=== PATIENT | female | born 1985 | race Hispanic/Latino ===

== ENCOUNTER 2016-11-17 22:26 | Emergency (ER) | payer OTHER ==
[~2016-11-17] VITALS: Ht 162.6 cm; Wt 106.6 kg
--- NOTE | 2016-11-17 22:30 | ED Cardiac General ---
History of Present Illness General Chief Complaint: Chest Pain Stated Complaint: CP,SYNCOPE Source: patient Exam Limitations: no limitations (NEAL NOONAN APRN) History of Present Illness Time seen by provider: 22:28 Initial Comments To ER with reports of chest pain and syncope per EMS. She arrives from home. Patient was reportedly in an argument with her 11-year-old daughter when she had a syncopal event. She then "came to" and felt normal. She was going to refuse EMS transport but she grabbed her chest and developed a brief episode of squeezing chest pain. At this point she is alert, oriented, smiling and very pleasant. She denies any symptoms whatsoever at this time states that she feels completely normal. She does not currently nor did she ever have dyspnea. No history of DVT. No unilateral leg swelling. Timing/Duration: changing over time, intermittent Severity: moderate Location: central Activities at Onset: emotional stress NTG SL SECONDS GRADER: No ASA po SECONDS GRADER: No (NEAL NOONAN APRN) Allergies and Home Medications Allergies Coded Allergies: No Known Drug Allergies (Unverified , 11/17/16) Review of Systems Constitutional: see HPI EENTM: No Symptoms Reported Respiratory: No Symptoms ReportedDenies Cough, Denies Orthopnea, Denies Shortness of Air, Denies SOA With Exertion, Denies SOA at Rest Cardiovascular: See HPI Chest PainDenies Edema, Denies Irregular Heart Rate, Denies Lightheadedness, Denies Palpitations, Syncope Gastrointestinal: No Symptoms Reported Genitourinary: No Symptoms Reported Musculoskeletal: no symptoms reported Skin: no symptoms reported Psychiatric/Neurological: No Symptoms Reported Hematologic/Lymphatic: No Symptoms Reported (NEAL NOONAN APRN) Physical Exam Vital Signs Vital Sign - Last 12Hours 11/17/16 22:27 Temp 97.9 Pulse 87 Resp 20 Pulse Ox 98 O2 Delivery Room Air (SHAMAR CHAPMAN MD) Vital Signs Capillary Refill : (NEAL NOONAN APRN) General Appearance: No Apparent Distress WD/WN HEENT: PERRL/EOMI TMs Normal Neck: Full Range of Motion Normal Inspection Respiratory: Normal Breath Sounds No Accessory Muscle Use No Respiratory Distress Cardiovascular: Regular Rate, Rhythm Normal Peripheral Pulses Gastrointestinal: Non Tender Soft Extremity: Normal Capillary Refill No Calf Tenderness Neurologic/Psychiatric: Alert Oriented x3 No Motor/Sensory Deficits Normal Mood/Affect Skin: Normal Color Warm/Dry (NEAL NOONAN APRN) Focused Exam Lactic Acid Level Laboratory Tests Test 11/17/16 22:25 Alanine Aminotransferase (ALT/SGPT) 32U/L (0-55) Albumin 3.9G/DL (3.2-4.5) Alkaline Phosphatase 83U/L (40-136) Anion Gap 9MMOL/L (5-14) Aspartate Amino Transf (AST/SGOT) 22U/L (5-34) BUN/Creatinine Ratio 9 Blood Urea Nitrogen 7MG/DL (7-18) Calcium Level 9.3MG/DL (8.5-10.1) Carbon Dioxide Level 25MMOL/L (21-32) Chloride Level 102MMOL/L (98-107) Creatinine 0.74MG/DL (0.60-1.30) Estimat Glomerular Filtration Rate > 60 Glucose Level 181MG/DL (70-105) H Potassium Level 3.9MMOL/L (3.6-5.0) Sodium Level 136MMOL/L (135-145) Total Bilirubin 0.2MG/DL (0.1-1.0) Total Protein 7.7G/DL (6.4-8.2) Troponin I < 0.30NG/ML (<0.30) (SHAMAR CHAPMAN MD) Progress/Results/Core Measures Results/Orders Lab Results Laboratory Tests Test 11/17/16 22:25 Range/Units Alanine Aminotransferase (ALT/SGPT) 32 0-55 U/L Albumin 3.9 3.2-4.5 G/DL Alkaline Phosphatase 83 40-136 U/L Anion Gap 9 5-14 MMOL/L Aspartate Amino Transf (AST/SGOT) 22 5-34 U/L BUN/Creatinine Ratio 9 Band Neutrophils 0 % Basophils # (Auto) 0.0 0.0-0.1 10^3/uL Basophils % (Manual) 1 % Basophils (%) (Auto) 0 0-10 % Blood Urea Nitrogen 7 7-18 MG/DL Calcium Level 9.3 8.5-10.1 MG/DL Carbon Dioxide Level 25 21-32 MMOL/L Chloride Level 102 98-107 MMOL/L Creatinine 0.74 0.60-1.30 MG/DL D-Dimer 0.31 0.00-0.49 UG/ML Elliptocytes SLIGHT Eosinophils # (Auto) 0.3 0.0-0.3 10^3/uL Eosinophils % (Manual) 2 % Eosinophils (%) (Auto) 2 0-10 % Estimat Glomerular Filtration Rate > 60 Glucose Level 181 H 70-105 MG/DL Hematocrit 29 L 35-52 % Hemoglobin 9.0 L 11.5-16.0 G/DL Hypochromasia MODERATE Lymphocytes # (Auto) 3.8 1.0-4.0 X 10^3 Lymphocytes % (Manual) 23 % Lymphocytes (%) (Auto) 27 12-44 % Mean Corpuscular Hemoglobin 21 L 25-34 PG Mean Corpuscular Hemoglobin Concent 31 L 32-36 G/DL Mean Corpuscular Volume 69 L 80-99 FL Mean Platelet Volume 10.6 H 7.4-10.4 FL Microcytosis MODERATE Monocytes # (Auto) 0.8 0.0-1.0 X 10^3 Monocytes % (Manual) 4 % Monocytes (%) (Auto) 5 0-12 % Neutrophils # (Auto) 9.1 H 1.8-7.8 X 10^3 Neutrophils % (Manual) 70 % Neutrophils (%) (Auto) 65 42-75 % Platelet Count 391 130-400 10^3/uL Potassium Level 3.9 3.6-5.0 MMOL/L Red Blood Count 4.28 L 4.35-5.85 10^6/uL Red Cell Distribution Width 16.0 H 10.0-14.5 % Sodium Level 136 135-145 MMOL/L Spherocytes SLIGHT Total Bilirubin 0.2 0.1-1.0 MG/DL Total Protein 7.7 6.4-8.2 G/DL Troponin I < 0.30 <0.30 NG/ML White Blood Count 14.0 H 4.3-11.0 10^3/uL (SHAMAR CHAPMAN MD) My Orders Orders-SHAMAR CHAPMAN MD Fibrin Degradation Products (11/17/16 23:04) (SHAMAR CHAPMAN MD) Vital Signs/I&O Vital Sign - Last 12Hours 11/17/16 11/17/16 22:27 22:47 Temp 97.9 Pulse 87 Resp 20 B/P Pulse Ox 98 O2 Delivery Room Air Room Air (SHAMAR CHAPMAN MD) Progress Note : Progress Note 2300: I did assume care of the patient from Neal Noonan APRN pending labs. I have reviewed the case with him. 2345: Patient is without symptoms and feels much better. She has had previous episode of similar during stressful event. No significant findings on labs other than anemia. She has known diabetes and hypertension and I did discuss this with her. She will follow-up with her doctor related all of findings. Discharged home with return precautions. Patient verbalize understanding of instructions and agreement with plan. She will follow up regarding anemia, hypertension and her blood sugar. (SHAMAR CHAPMAN MD) ECG Initial ECG Impression Date: Nov 17, 2016 Initial ECG Impression Time: 21:29 Initial ECG Rate: 85 Initial ECG Rhythm: Normal Sinus Comment Sinus rhythm with normal axis. No evidence of elevation [place]. Left ventricular hypertrophy. No previous available for comparison. Interpreted by me. (SHAMAR CHAPMAN MD) Diagnostic Imaging Diagonstic Imaging: Xray Plain Films/CT/US/NM/MRI: chest Comments No acute findings (SHAMAR CHAPMAN MD) Departure Impression Impression: Primary Impression: Syncope Qualified Code: R55 - Syncope and collapse Additional Impression: Anemia Qualified Code: D64.9 - Anemia, unspecified Disposition: 01 HOME, SELF-CARE Condition: Improved Departure-Patient Inst. Decision time for Depature: 23:49 (SHAMAR CHAPMAN MD) Referrals: UNKNOWN (PCP/Family) Primary Care Physician Patient Instructions: Anemia Caused by Low Iron, Adult (DC), Syncope (Fainting ) (DC) Copy Copies To 1: WANDA SPENCE PETER J APRN Nov 17, 2016 22:30 SHAMAR CHAPMAN MD Nov 17, 2016 23:51
[2016-11-17 22:34] LABS: BASOPHILS % (AUTO) 0 % (0-10); EOSINOPHILS # (AUTO) 0.3 10^3/uL (0.0-0.3); EOSINOPHILS % (AUTO) 2 % (0-10); LYMPHOCYTES # (AUTO) 3.8 X 10^3 (1.0-4.0); LYMPHOCYTES % (AUTO) 27 % (12-44); MEAN CORPUSCULAR HEMOGLOBIN 21 PG (25-34); MEAN CORPUSCULAR HGB CONC 31 G/DL (32-36); MEAN CORPUSCULAR VOLUME 69 FL (80-99); MEAN PLATELET VOLUME 10.6 FL (7.4-10.4); MONOCYTES # (AUTO) 0.8 X 10^3 (0.0-1.0); MONOCYTES % (AUTO) 5 % (0-12); NEUTROPHILS # (AUTO) 9.1 X 10^3 (1.8-7.8); NEUTROPHILS % (AUTO) 65 % (42-75); PLATELET COUNT 391 10^3/uL (130-400); RED BLOOD COUNT 4.28 10^6/uL (4.35-5.85)
[2016-11-17 22:46] LABS: BAND NEUTROPHILS 0 %; BASOPHILS % (MANUAL) 1 %; EOSINOPHILS % (MANUAL) 2 %; HYPOCHROMASIA MODERATE; LYMPHOCYTES % (MANUAL) 23 %; NEUTROPHILS % (MANUAL) 70 %
[2016-11-17 22:48] LABS: MICROCYTOSIS MODERATE
[2016-11-17 22:49] LABS: SPHEROCYTES SLIGHT
[2016-11-17 23:01] LABS: ALANINE AMINOTRANSFERASE 32 U/L (0-55); ALBUMIN 3.9 G/DL (3.2-4.5); ANION GAP 9 MMOL/L (5-14); ASPARTATE AMINO TRANSFERASE 22 U/L (5-34); BILIRUBIN,TOTAL 0.2 MG/DL (0.1-1.0); BLOOD UREA NITROGEN 7 MG/DL (7-18); BUN/CREATININE RATIO 9; CALCIUM 9.3 MG/DL (8.5-10.1); CARBON DIOXIDE 25 MMOL/L (21-32); CHLORIDE 102 MMOL/L (98-107); CREATININE SERUM 0.74 MG/DL (0.60-1.30); GFR ESTIMATED > 60; GLUCOSE 181 MG/DL (70-105); POTASSIUM 3.9 MMOL/L (3.6-5.0); SODIUM 136 MMOL/L (135-145); TOTAL PROTEIN 7.7 G/DL (6.4-8.2)
[2016-11-17 23:07] LABS: TROPONIN I < 0.30 NG/ML (<0.30)
[2016-11-18] VITALS: BP 123/85
--- NOTE | 2016-11-18 07:57 | Diagnostic Imaging Report ---
INDICATION: Chest pain and tightness PA and lateral chest obtained at 1103 hrs. p.m. Heart and mediastinal silhouette are normal in appearance. The lungs are clear. There is no pneumothorax or pleural fluid. IMPRESSION: Negative chest. Dictated by: Dictated on workstation # [id number]
== END 2016-11-18 | disposition home or self-care (01) ==
LOC: ER 22:27
DX: R55 Syncope and collapse (principal); D64.9 Anemia, unspecified
CPT/HCPCS: 36415; 71020; 80053; 84484; 84703; 85007; 85027; 85379; 93005

== ENCOUNTER 2016-12-03 16:38 | Emergency (ER) | payer OTHER ==
[~2016-12-03] VITALS: Ht 162.6 cm; Wt 106.6 kg
[2016-12-03] MEDS ORDERED: ACETAMINOPHEN 500 MG TAB (TYLENOL) ONE (17:00)
[2016-12-03] MEDS ORDERED: IBUPROFEN 800 MG (MOTRIN) TAB PO ONE (17:00)
[2016-12-03] MEDS ORDERED: NS IV 1000 ML 1,000 ML ONE (17:00)
[2016-12-03] MEDS ORDERED: NS IV 1000 ML 1,000 ML IV ONE (17:03)
[2016-12-03 17:17] LABS: BASOPHILS % (AUTO) 0 % (0-10); EOSINOPHILS # (AUTO) 0.1 10^3/uL (0.0-0.3); EOSINOPHILS % (AUTO) 2 % (0-10); LYMPHOCYTES # (AUTO) 0.8 X 10^3 (1.0-4.0); LYMPHOCYTES % (AUTO) 14 % (12-44); MEAN CORPUSCULAR HEMOGLOBIN 21 PG (25-34); MEAN CORPUSCULAR HGB CONC 31 G/DL (32-36); MEAN CORPUSCULAR VOLUME 69 FL (80-99); MEAN PLATELET VOLUME 10.7 FL (7.4-10.4); MONOCYTES # (AUTO) 0.6 X 10^3 (0.0-1.0); MONOCYTES % (AUTO) 11 % (0-12); NEUTROPHILS % (AUTO) 72 % (42-75); PLATELET COUNT 282 10^3/uL (130-400); RED BLOOD COUNT 4.45 10^6/uL (4.35-5.85); RED CELL DISTRIBUTION WIDTH 17.1 % (10.0-14.5); WHITE BLOOD COUNT 5.5 10^3/uL (4.3-11.0)
[2016-12-03] MEDS ORDERED: METF500T8 (17:28)
[2016-12-03] MEDS ORDERED: LISI10TA2 (17:28)
[2016-12-03 17:48] LABS: ALANINE AMINOTRANSFERASE 50 U/L (0-55); ALBUMIN 3.8 G/DL (3.2-4.5); ANION GAP 7 MMOL/L (5-14); ASPARTATE AMINO TRANSFERASE 37 U/L (5-34); BILIRUBIN,TOTAL 0.2 MG/DL (0.1-1.0); BLOOD UREA NITROGEN 5 MG/DL (7-18); BUN/CREATININE RATIO 6; CALCIUM 8.9 MG/DL (8.5-10.1); CARBON DIOXIDE 26 MMOL/L (21-32); CHLORIDE 103 MMOL/L (98-107); CREATININE SERUM 0.78 MG/DL (0.60-1.30); GFR ESTIMATED > 60; GLUCOSE 182 MG/DL (70-105); POTASSIUM 3.9 MMOL/L (3.6-5.0); SODIUM 136 MMOL/L (135-145); TOTAL PROTEIN 7.8 G/DL (6.4-8.2)
[2016-12-03 17:56] LABS: BILIRUBIN,URINE NEGATIVE (NEGATIVE); KETONES,URINE NEGATIVE (NEGATIVE); LEUKOCYTE ESTERASE ,URINE 1+ (NEGATIVE); NITRITE,URINE NEGATIVE (NEGATIVE); PH,URINE 8 (5-9); PROTEIN,URINE 2+ (NEGATIVE); UROBILINOGEN,URINE NORMAL (NORMAL)
--- NOTE | 2016-12-03 17:56 | ED Cough/URI ---
General Chief Complaint: Fever-Adult/Adol Stated Complaint: FEVER, SORE THROAT Nursing Triage Note: PT STATES HAS HAD FEVER FOR APPROX 3 DAYS, TODAY EARLIER UP TO 104. PT ALSO HAS SORETHROAT. WENT TO AND WAS GIVEN [facility]. History of Present Illness Time seen by provider: 17:35 Initial Comments Evaluation for fever, sore throat, and sinus congestion. Timing/Duration: yesterday Severity/Quality: mild, dry cough Prior Episodes/Possible Cause: no prior episodes Modifying Factors: Improves With Rest Associated Symptoms: cough, fever/chills, headache, nasal congestion Allergies and Home Medications Allergies Coded Allergies: No Known Drug Allergies (Unverified , 11/17/16) Home Medications Lisinopril 10 Mg Tablet, #30 (Reported) Metformin HCl 500 Mg Tab.er.24h, #90 (Reported) Constitutional: no symptoms reported, see HPI EENTM: nose congestion, see HPI, throat pain Respiratory: no symptoms reported, see HPI Cardiovascular: no symptoms reported, see HPI Gastrointestinal: no symptoms reported, see HPI Genitourinary: no symptoms reported, see HPI : No LMP: Dec 02, 2016 Musculoskeletal: no symptoms reported, see HPI Skin: no symptoms reported, see HPI Psychiatric/Neurological: No Symptoms Reported, See HPI Hematologic/Lymphatic: No Symptoms Reported, See HPI Immunological/Allergic: no symptoms reported, see HPI All Other Systems Reviewed Negative Unless Noted: Yes Past Xzzzlhd-Mliezr-Mliwle Hx Patient Social History Alcohol Use: Denies Use Recreational Drug Use: No Smoking Status: Never a Smoker Recent Foreign Travel: No Contact w/Someone Who Travel: No Recent Infectious Disease Expo: No Recent Hopitalizations: No Seasonal Allergies Seasonal Allergies: No Surgeries HX Surgeries: Yes (2 C-SECTIONS) Surgeries: Section Respiratory Hx Respiratory Disorders: No Cardiovascular Hx Cardiac Disorders: No Neurological Hx Neurological Disorders: No Reproductive System Hx Reproductive Disorders: No Genitourinary Hx Genitourinary Disorders: No Gastrointestinal Hx Gastrointestinal Disorders: No Musculoskeletal Hx Musculoskeletal Disorders: No Endocrine Hx Endocrine Disorders: Yes Endocrine Disorders: Diabetes, Non-Insulin dep HEENT HX ENT Disorders: No Cancer Hx Cancer: No Psychosocial Hx Psychiatric Problems: No Integumentary HX Skin/Integumentary Disorder: No Blood Transfusions Hx Blood Disorders: No Reviewed Nursing Assessment Reviewed/Agree w Nursing PMH: Yes Physical Exam Vital Signs Vital Sign - Last 12Hours 12/03/16 16:55 Temp 102.7 Pulse 116 Resp 18 B/P (MAP) 163/102 Pulse Ox 97 Capillary Refill : Less Than 3 Seconds General Appearance: no apparent distress Eyes: Bilateral Eye EOMI, Bilateral Eye Normal Inspection, Bilateral Eye PERRL HEENT: PERRL/EOMI, normal ENT inspection, TMs normal, pharynx normal Neck: non-tender, full range of motion, supple, lymphadenopathy (R), lymphadenopathy (L) Respiratory: chest non-tender, lungs clear, normal breath sounds Cardiovascular: normal peripheral pulses, regular rate, rhythm, no murmur Gastrointestinal: normal bowel sounds, non tender, soft, no organomegaly, no pulsatile mass, No rebound, No tenderness Extremities: normal range of motion, non-tender, normal inspection, no pedal edema, no calf tenderness, normal capillary refill Neurologic/Psychiatric: no motor/sensory deficits, alert, normal mood/affect, oriented x 3 Skin: normal color, warm/dry Progress/Results/Core Measures Results/Orders Lab Results Laboratory Tests Test 12/03/16 17:00 12/03/16 17:10 12/03/16 17:45 Range/Units Group A Streptococcus Screen NEGATIVE NEGATIVE White Blood Count 5.5 4.3-11.0 10^3/uL Red Blood Count 4.45 4.35-5.85 10^6/uL Hemoglobin 9.5 L 11.5-16.0 G/DL Hematocrit 31 L 35-52 % Mean Corpuscular Volume 69 L 80-99 FL Mean Corpuscular Hemoglobin 21 L 25-34 PG Mean Corpuscular Hemoglobin Concent 31 L 32-36 G/DL Red Cell Distribution Width 17.1 H 10.0-14.5 % Platelet Count 282 130-400 10^3/uL Mean Platelet Volume 10.7 H 7.4-10.4 FL Neutrophils (%) (Auto) 72 42-75 % Lymphocytes (%) (Auto) 14 12-44 % Monocytes (%) (Auto) 11 0-12 % Eosinophils (%) (Auto) 2 0-10 % Basophils (%) (Auto) 0 0-10 % Neutrophils # (Auto) 4.0 1.8-7.8 X 10^3 Lymphocytes # (Auto) 0.8 L 1.0-4.0 X 10^3 Monocytes # (Auto) 0.6 0.0-1.0 X 10^3 Eosinophils # (Auto) 0.1 0.0-0.3 10^3/uL Basophils # (Auto) 0.0 0.0-0.1 10^3/uL Sodium Level 136 135-145 MMOL/L Potassium Level 3.9 3.6-5.0 MMOL/L Chloride Level 103 98-107 MMOL/L Carbon Dioxide Level 26 21-32 MMOL/L Anion Gap 7 5-14 MMOL/L Blood Urea Nitrogen 5 L 7-18 MG/DL Creatinine 0.78 0.60-1.30 MG/DL Estimat Glomerular Filtration Rate > 60 BUN/Creatinine Ratio 6 Glucose Level 182 H 70-105 MG/DL Calcium Level 8.9 8.5-10.1 MG/DL Total Bilirubin 0.2 0.1-1.0 MG/DL Aspartate Amino Transf (AST/SGOT) 37 H 5-34 U/L Alanine Aminotransferase (ALT/SGPT) 50 0-55 U/L Alkaline Phosphatase 72 40-136 U/L Total Protein 7.8 6.4-8.2 G/DL Albumin 3.8 3.2-4.5 G/DL Monoscreen NEGATIVE NEGATIVE Urine Color YELLOW Urine Clarity SLIGHTLY CLOUDY Urine pH 8 5-9 Urine Specific [place] 1.015 L 1.016-1.022 Urine Protein 2+ H NEGATIVE Urine Glucose (UA) NEGATIVE NEGATIVE Urine Ketones NEGATIVE NEGATIVE Urine Nitrite NEGATIVE NEGATIVE Urine Bilirubin NEGATIVE NEGATIVE Urine Urobilinogen NORMAL NORMAL MG/DL Urine Leukocyte Esterase 1+ H NEGATIVE Urine RBC (Auto) 5+ H NEGATIVE Urine RBC >100 H /HPF Urine WBC 0-2 /HPF Urine Squamous Epithelial Cells 2-5 /HPF Urine Crystals NONE /LPF Urine Bacteria NONE /HPF Urine Casts NONE /LPF Urine Mucus NEGATIVE /LPF Urine Culture Indicated NO Micro Results Microbiology 12/03/16 Influenza Types A,B Antigen (PRASHANTH) - Final, Complete My Orders Orders - FAYE BURTON Cbc With Automated Diff (12/03/16 17:03) Comprehensive Metabolic Panel (12/03/16 17:03) Monotest (12/03/16 17:03) Rapid Strep A Screen (12/03/16 17:03) Ua Culture If Indicated (12/03/16 17:03) Saline Lock/Iv-Start (12/03/16 17:03) Ns Iv 1000 Ml (Sodium Chloride 0.9%) (12/03/16 17:03) Influenza A And B Antigens (12/03/16 18:22) Medications Given in ED Current Medications Medications Dose Ordered Sig/Juan Route Start Time Stop Time Status Last Admin Dose Admin Acetaminophen 500 mg STK-MED ONCE .ROUTE 12/03/16 17:00 12/03/16 17:03 DC 12/03/16 17:13 1,000 MG Ibuprofen 800 mg STK-MED ONCE PO 12/03/16 17:00 12/03/16 17:03 DC 12/03/16 17:13 800 MG Sodium Chloride 1,000 ml @ 0 mls/hr Q0M ONCE IV 12/03/16 17:03 12/03/16 17:06 DC 12/03/16 17:13 1,000 MLS/HR Vital Signs/I&O Vital Sign - Last 12Hours 12/03/16 16:55 Temp 102.7 Pulse 116 Resp 18 B/P (MAP) 163/102 Pulse Ox 97 Blood Pressure Mean: 122 Progress Note : Time: 17:35 Progress Note Initial evaluation completed, b/p 143/99, temp continues 102.7. Ibuprofen 800 mg and acetaminophen 500 mg by mouth given at 1715. 1 L of normal saline infusin IV. WBC 5.5, hemoglobin 9.5, hematocrit 31, platelets 282. Sodium 136, potassium 3.9, chloride 103, UA and 5, glucose 182, AST 87, and ALT 50. [place] screening and group A strep negative. Departure Impression Impression: Primary Impression: Fever Qualified Codes: R50.9 - Fever, unspecified Additional Impression: Viral upper respiratory illness Disposition: 01 HOME, SELF-CARE Condition: Improved Departure-Patient Inst. Referrals: WANDA SPENCE DO (PCP/Family) Primary Care Physician Patient Instructions: Cough, Adult (DC), Fever, Adult (DC) Add. Discharge Instructions: All discharge instructions reviewed with patient and/or family. Voiced understanding. May every 4 hours: Tylenol 650 mg and ibuprofen 600 mg. Continue to use the medications provided by Lauren Mcneill APRN. Return to emergency department for difficulty breathing, fever, or any new concerns. Increase fluid intake. FAYE BURTON Dec 03, 2016 17:56
[2016-12-03 18:08] LABS: WBC,URINE 0-2 /HPF
[2016-12-03 19:19] VITALS: BP 117/98
== END 2016-12-03 19:19 | disposition home or self-care (01) ==
LOC: EDUNIT# 16:38 → ER 16:40
DX: J06.9 Acute upper respiratory infection, unspecified (principal); R50.9 Fever, unspecified
CPT/HCPCS: 36415; 80053; 81000; 85025; 86308; 87430; 87804; 96360; 96361

== ENCOUNTER 2016-12-06 19:22 | Emergency (ER) | payer OTHER ==
[~2016-12-06] VITALS: Ht 162.6 cm; Wt 106.6 kg
[~2016-12-06 19:22] MED LIST: LISI10TA2; METF500T8
[2016-12-06] MEDS ORDERED: ACETAMINOPHEN 500 MG TAB (TYLENOL) PO ONE (20:00)
[2016-12-06] MEDS ORDERED: KETOROLAC 60 MG/2 ML VIAL IM ONE (20:15)
[2016-12-06] MEDS ORDERED: LIDOCAINE 2% VISCOUS 15 ML UDC PO ONE (20:15)
--- NOTE | 2016-12-06 20:31 | Diagnostic Imaging Report ---
INDICATION: Cough and fever PA and lateral chest Heart size and pulmonary vascularity are normal. Lungs are clear. There are no effusions or pneumothoraces. IMPRESSION: Negative chest Dictated by: Dictated on workstation # [id number]
--- NOTE | 2016-12-06 20:36 | ED General ---
General Chief Complaint: Fever-Adult/Adol Stated Complaint: FEVER VOMITING CHILLS RAW THROAT Nursing Triage Note: PT TO ED 5 W/ S.O. FOR C/O SORE THROAT, COUGH ONSET X6 DAYS, WORSE TODAY. PT HAS BEEN SEEN AT [facility] ET THIS ED FOR SAME C/O ET DENIES IMPROVEMENT. REPORTS LAST DOSE OF IBUPROFEN AT 1600 TODAY Nursing Sepsis Screen: No Definite Risk Source of Information: Patient, Family, Old Records Exam Limitations: No Limitations History of Present Illness Time Seen by Provider: 19:23 Initial Comments This 31-year-old woman presents to the emergency room complaining of intense sore throat. She also has cough and rhinorrhea. She has been seen twice already for this problem including a visit to [facility] into the emergency room. Prior strep, influenza, and mono screening were negative. She received IV fluids in the emergency room previously. She has had an episode of vomiting as well. She's not eating well. She is diabetic. She took ibuprofen at 16:00. Allergies and Home Medications Allergies Coded Allergies: No Known Drug Allergies (Unverified , 11/17/16) Home Medications Lisinopril 10 Mg Tablet, #30 (Reported) Metformin HCl 500 Mg Tab.er.24h, #90 (Reported) Prednisone 20 Mg Tab, 20 MG PO DAILY, #3 Prescribed by: RAMA BURGESS on 12/06/162112 Constitutional: see HPI EENTM: see HPI Respiratory: see HPI Cardiovascular: no symptoms reported Gastrointestinal: see HPI Genitourinary: no symptoms reported : No Musculoskeletal: no symptoms reported Skin: no symptoms reported Psychiatric/Neurological: No Symptoms Reported Hematologic/Lymphatic: No Symptoms Reported Immunological/Allergic: no symptoms reported Past Hjcvrqg-Fnpnmi-Txxmos Hx Patient Social History Alcohol Use: Denies Use Recreational Drug Use: No Smoking Status: Never a Smoker Recent Foreign Travel: No Contact w/Someone Who Travel: No Recent Infectious Disease Expo: No Recent Hopitalizations: No Seasonal Allergies Seasonal Allergies: No Surgeries HX Surgeries: Yes (2 C-SECTIONS) Surgeries: Section Respiratory Hx Respiratory Disorders: No Cardiovascular Hx Cardiac Disorders: No Neurological Hx Neurological Disorders: No Reproductive System Hx Reproductive Disorders: No Genitourinary Hx Genitourinary Disorders: No Gastrointestinal Hx Gastrointestinal Disorders: No Musculoskeletal Hx Musculoskeletal Disorders: No Endocrine Hx Endocrine Disorders: Yes Endocrine Disorders: Diabetes, Non-Insulin dep HEENT HX ENT Disorders: No Cancer Hx Cancer: No Psychosocial Hx Psychiatric Problems: No Integumentary HX Skin/Integumentary Disorder: No Blood Transfusions Hx Blood Disorders: No Physical Exam Vital Signs Vital Sign - Last 12Hours 12/06/16 19:34 Temp 102.1 Pulse 101 Resp 20 B/P (MAP) 140/86 Pulse Ox 99 O2 Delivery Room Air Capillary Refill : Less Than 3 Seconds General Appearance: WD/WN, Mild Distress HEENT: PERRL/EOMI, TMs Normal, Normal ENT Inspection, Pharynx Normal Neck: Normal Inspection, Tender Lateral Respiratory: Lungs Clear, Normal Breath Sounds, No Accessory Muscle Use, No Respiratory Distress, Other (patient had delayed forced expiratory phase which also induced coughing) Cardiovascular: No Edema, No Murmur, Tachycardia Gastrointestinal: Normal Bowel Sounds, Non Tender, Soft Extremity: Normal Inspection, No Pedal Edema Neurologic/Psychiatric: Alert, Oriented x3, No Motor/Sensory Deficits, Normal 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 Patient was felt to have a viral syndrome as she has a constellation of symptoms including rhinorrhea, cough, fever and sore throat that would suggest viral etiology. Patient was treated with Tylenol, Toradol, and oral viscous lidocaine. She notes significant improvement. Chest x-ray was negative. She was given prednisone as well for bronchitis. Diagnostic Imaging Diagonstic Imaging: Xray Plain Films/CT/US/NM/MRI: chest Comments Chest x-ray viewed by me and report reviewed. See report below: \ NAME: ANDUJAR DELMER [facility] REC#: [id number] PT STATUS: REG ER : 1985 PHYSICIAN: RAMA ESPINO MD ADMIT DATE: 12/06/16/ER Draft Date of Exam:12/06/16 CHEST PA/LAT (2 VIEW) INDICATION: Cough and fever PA and lateral chest Heart size and pulmonary vascularity are normal. Lungs are clear. There are no effusions or pneumothoraces. IMPRESSION: Negative chest Dictated on workstation # [id number] Dict: 12/06/162026 Trans: 12/06/162029 [facility] [id number] Interpreted by: SHAMAR MAHONEY Departure Impression Impression: Primary Impression: Acute bronchitis Qualified Codes: J20.9 - Acute bronchitis, unspecified Additional Impressions: Fever Qualified Codes: R50.9 - Fever, unspecified Pharyngitis Qualified Codes: J02.9 - Acute pharyngitis, unspecified Disposition: HOME, SELF-CARE Condition: Improved Departure-Patient Inst. Decision time for Depature: 21:00 Referrals: WANDA SPENCE DO (PCP/Family) Primary Care Physician Patient Instructions: Acute Bronchitis, Adult (DC) Add. Discharge Instructions: You may take ibuprofen up to 800 mg every 8 hours as needed for pain or fever. You may also take Tylenol up to 1000 mg every 6 hours as needed for pain or fever. You may swish, gargle, and swallow the remaining lidocaine as needed for sore throat. Eat and drink carefully after use as it may numb your mouth and throat. Return to care if symptoms worsen. All discharge instructions reviewed with patient and/or family. Voiced understanding. Scripts Prednisone (Prednisone) 20 Mg Tab 20 MG PO DAILY, #3 TAB Prov: RAMA ESPINO MD 12/06/16 Work/School Note: Work Release Form Date Seen in the Emergency Department: Dec 06, 2016 Return to Work: Dec 09, 2016 Restrictions: No Restrictions RAMA ESPINO MD Dec 06, 2016 20:36
[2016-12-06] MEDS ORDERED: PRD20T PO (21:13)
[2016-12-06] MEDS ORDERED: predniSONE 20 MG TAB PO ONE (21:15)
[2016-12-06 21:23] VITALS: BP 0/0
== END 2016-12-06 21:23 | disposition home or self-care (01) ==
LOC: EDUNIT# 19:22 → ER 19:23
DX: J20.9 Acute bronchitis, unspecified (principal); J02.9 Acute pharyngitis, unspecified; R50.9 Fever, unspecified; E11.9 Type 2 diabetes mellitus without complications; Z79.84 Long term (current) use of oral hypoglycemic drugs; Z79.899 Other long term (current) drug therapy
CPT/HCPCS: 71020; 87430; 87804; 96372; 99282

== ENCOUNTER 2017-07-26 08:08 | Emergency (ER) | payer SELFPAY ==
[~2017-07-26] VITALS: Ht 162.6 cm; Wt 95.3 kg
[~2017-07-26 08:08] MED LIST changes: +PRD20T PO
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
[2017-07-26 09:52] LABS: BASOPHILS % (AUTO) 1 % (0-10); EOSINOPHILS # (AUTO) 0.2 10^3/uL (0.0-0.3); EOSINOPHILS % (AUTO) 2 % (0-10); LYMPHOCYTES # (AUTO) 2.1 X 10^3 (1.0-4.0); LYMPHOCYTES % (AUTO) 25 % (12-44); MEAN CORPUSCULAR HEMOGLOBIN 21 PG (25-34); MEAN CORPUSCULAR HGB CONC 31 G/DL (32-36); MEAN CORPUSCULAR VOLUME 69 FL (80-99); MEAN PLATELET VOLUME 10.7 FL (7.4-10.4); MONOCYTES # (AUTO) 0.5 X 10^3 (0.0-1.0); MONOCYTES % (AUTO) 6 % (0-12); NEUTROPHILS # (AUTO) 5.6 X 10^3 (1.8-7.8); NEUTROPHILS % (AUTO) 67 % (42-75); PLATELET COUNT 300 10^3/uL (130-400); RED CELL DISTRIBUTION WIDTH 17.3 % (10.0-14.5); WHITE BLOOD COUNT 8.5 10^3/uL (4.3-11.0)
[2017-07-26 10:11] LABS: ALANINE AMINOTRANSFERASE 39 U/L (0-55); ALBUMIN 3.9 GM/DL (3.2-4.5); ANION GAP 10 MMOL/L (5-14); ASPARTATE AMINO TRANSFERASE 24 U/L (5-34); BILIRUBIN,TOTAL 0.3 MG/DL (0.1-1.0); BLOOD UREA NITROGEN 6 MG/DL (7-18); BUN/CREATININE RATIO 8; CALCIUM 9.4 MG/DL (8.5-10.1); CARBON DIOXIDE 25 MMOL/L (21-32); CHLORIDE 102 MMOL/L (98-107); CREATININE SERUM 0.75 MG/DL (0.60-1.30); GFR ESTIMATED > 60; GLUCOSE 191 MG/DL (70-105); POTASSIUM 3.7 MMOL/L (3.6-5.0); SODIUM 137 MMOL/L (135-145); TOTAL PROTEIN 7.8 GM/DL (6.4-8.2)
[2017-07-26 10:30] LABS: THYROID STIMULATING HORMONE 1.85 UIU/ML (0.35-4.94)
--- NOTE | 2017-07-26 10:30 | Diagnostic Imaging Report ---
PA and lateral views of the chest Indication: Syncope Findings: The lungs are clear. The heart size is normal. There is no effusion or pneumothorax The mediastinum and reynaldo appear unremarkable. Impression: Unremarkable study. Dictated by: Dictated on workstation # [id number]
[2017-07-26 11:10] LABS: BILIRUBIN,URINE NEGATIVE (NEGATIVE); KETONES,URINE NEGATIVE (NEGATIVE); LEUKOCYTE ESTERASE ,URINE NEGATIVE (NEGATIVE); NITRITE,URINE NEGATIVE (NEGATIVE); PH,URINE 8 (5-9); PROTEIN,URINE NEGATIVE (NEGATIVE); UROBILINOGEN,URINE NORMAL (NORMAL)
[2017-07-26 11:23] LABS: SQUAMOUS EPITHELIAL CELL,UR 0-2 /HPF
[2017-07-26 12:07] VITALS: BP 124/88
== END 2017-07-26 11:50 | disposition home or self-care (01) ==
LOC: EDUNIT# 08:08 → ER 08:11
DX: R55 Syncope and collapse (principal); D50.9 Iron deficiency anemia, unspecified; E11.9 Type 2 diabetes mellitus without complications; Z79.84 Long term (current) use of oral hypoglycemic drugs; Z87.59 Personal history of other complications of pregnancy, childbirth and the puerperium
CPT/HCPCS: 36415; 71020; 80053; 80306; 81000; 82962; 84443; 84703; 85025; 93005

== ENCOUNTER 2017-08-05 10:52 | Outpatient (RCR) | payer SELFPAY | END 2017-11-03 | disposition home or self-care (01) | LOC: CARD 10:52 | PROVIDERS: ATTEND Nurse Practitioner Family | DX: R55 Syncope and collapse (principal) | CPT/HCPCS: 93225; 93226 ==

== ENCOUNTER → 2017-10-29 | Outpatient (CLI) | payer SELFPAY | LOC: CARD 09:44 | PROVIDERS: ATTEND Internal Medicine Cardiovascular Disease | DX: R55 Syncope and collapse (principal); I10 Essential (primary) hypertension; E66.9 Obesity, unspecified; E11.9 Type 2 diabetes mellitus without complications; R01.1 Cardiac murmur, unspecified | CPT/HCPCS: 93306 ==

== ENCOUNTER 2020-07-21 19:17 | Emergency (ER) | payer BC, OTHER ==
[~2020-07-21] VITALS: Ht 162.5 cm; Wt 99.7 kg
[~2020-07-21 19:17] MED LIST changes: +METF-865; -METF500T8
[2020-07-21 20:13] LABS: BILIRUBIN,URINE NEGATIVE (NEGATIVE); CLARITY,URINE CLEAR; COLOR,URINE YELLOW; GLUCOSE, URINE (UA) 3+ (NEGATIVE); KETONES,URINE 1+ (NEGATIVE); LEUKOCYTE ESTERASE ,URINE NEGATIVE (NEGATIVE); NITRITE,URINE NEGATIVE (NEGATIVE); PROTEIN,URINE NEGATIVE (NEGATIVE)
[2020-07-21 20:13] LABS: BASOPHILS % (AUTO) 0 % (0-10); EOSINOPHILS % (AUTO) 1 % (0-10); HEMATOCRIT 41 % (35-52); LYMPHOCYTES # (AUTO) 1.3 10^3/uL (1.0-4.0); LYMPHOCYTES % (AUTO) 23 % (12-44); MEAN CORPUSCULAR HEMOGLOBIN 26 pg (25-34); MEAN CORPUSCULAR HGB CONC 32 g/dL (32-36); MEAN CORPUSCULAR VOLUME 82 fL (80-99); MEAN PLATELET VOLUME 12.3 fL (9.0-12.2); MONOCYTES # (AUTO) 0.4 10^3/uL (0.0-1.0); MONOCYTES % (AUTO) 7 % (0-12); NEUTROPHILS # (AUTO) 4.1 10^3/uL (1.8-7.8); NEUTROPHILS % (AUTO) 70 % (42-75); PLATELET COUNT 200 10^3/uL (130-400); WHITE BLOOD COUNT 5.8 10^3/uL (4.3-11.0)
[2020-07-21] MEDS ORDERED: NS IV 1000 ML 1,000 ML ONE (20:14)
[2020-07-21] MEDS ORDERED: ACETAMINOPHEN 500 MG TAB (TYLENOL) ONE (20:14)
[2020-07-21] MEDS ORDERED: IBUPROFEN 800 MG (MOTRIN) TAB PO ONE (20:14)
[2020-07-21 20:20] LABS: BACTERIA,URINE TRACE /HPF; WBC,URINE RARE /HPF
[2020-07-21 20:25] LABS: INR 0.9 (0.8-1.4); PROTHROMBIN TIME PATIENT 12.9 SEC (12.2-14.7)
--- NOTE | 2020-07-21 20:27 | ED Respiratory ---
General Chief Complaint: Respiratory Problems Stated Complaint: SOB/LOSS OF TASTE/FATIGUE/CHILLS Nursing Triage Note: arrives this evening having shortness of breath, cough, burnning eyes, chills loss of taste and smell. Source: patient History of Present Illness Date Seen by Provider: Jul 21, 2020 Time Seen by Provider: 19:45 Initial Comments PT ARRIVES VIA POV FROM HOME STATES SHE STARTED GETTING SICK WEDNESDAY NIGHT BEGAN HAVING A COUGH WEDNESDAY NIGHT HAS LOSS OF TASTE AND SMELL TONIGHT HAS HAD SOME SHORTNESS OF BREATH AND CHEST HEAVINESS TODAY C/O BODY ACHES C/O CHILLS, BUT HAS NOT CHECKED TEMP--IS 101 ON ARRIVAL HERE--HAS NOT TAKEN ANYTHING FOR SYMPTOMS NO GI SYMPTOMS HAS BEEN EATING AND DRINKING NORMALLY--C/O THIRST, BUT STATES SHE IS DIABETIC--DOES NOT CHECK BLOOD SUGAR, IS ON ORAL MEDICATIONS. 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 NORMAL. NO CONTROL [facility] Allergies and Home Medications Allergies Coded Allergies: No Known Drug Allergies (Unverified , 11/17/16) Home Medications Prednisone 20 Mg Tab, 20 MG PO DAILY Prescribed by: RAMA BURGESS on 12/06/162112 Patient Home Medication List Home Medication List Reviewed: Yes Review of Systems Review of Systems Constitutional: see HPI, chills, malaise, weakness EENTM: see HPI; No nose congestion, No throat pain Respiratory: see HPI, cough, short of breath Cardiovascular: see HPI (CHEST HEAVINESS) Gastrointestinal: no symptoms reported; No abdominal pain, No diarrhea, No loss of appetite, No nausea, No vomiting Genitourinary: no symptoms reported Musculoskeletal: see HPI (BODY ACHES) Skin: no symptoms reported; No rash Psychiatric/Neurological: No Symptoms Reported; Denies Headache Hematologic/Lymphatic: No Symptoms Reported Immunological/Allergic: no symptoms reported Past Ybokxpf-Pptynd-Mzrntu Hx Past Med/Social Hx: Reviewed and Corrections made Patient Social History Recent Foreign Travel: No Contact w/Someone Who Travel: No Recent Infectious Disease Expo: No Recent Hopitalizations: No Seasonal Allergies Seasonal Allergies: No Past Medical History Surgeries: Yes Section Respiratory: No Cardiac: Yes Hypertension Neurological: No Last Menstrual Period: Jun 25, 2020 Reproductive Disorders: No Genitourinary: No Gastrointestinal: No Musculoskeletal: No Endocrine: Yes Diabetes, Non-Insulin dep HEENT: No Cancer: No Psychosocial: No Integumentary: No Blood Disorders: No Physical Exam Vital Signs - First Documented 07/21/20 19:30 Temp 38.3 Pulse 120 Resp 20 B/P (MAP) 160/99 (119) Pulse Ox 98 Capillary Refill : Less Than 3 Seconds Height: 5'4.00" Weight: 210lbs. oz. 95.873394cj; 37.00 BMI Method:Stated General Appearance: WD/WN, no apparent distress, other (DOES NOT APPEAR ILL OR TO BE IN ANY DISCOMFORT OR DISTRESS. NO DYSPNEA. NO COUGH NOTED AT ANY TIME) HEENT: PERRL/EOMI, normal ENT inspection, TMs normal, pharynx normal Neck: non-tender, full range of motion, supple, normal inspection Respiratory: normal breath sounds, no respiratory distress, no accessory muscle use Cardiovascular: no edema, no JVD, no murmur, tachycardia Gastrointestinal: normal bowel sounds, non tender, soft, no organomegaly Extremities: normal inspection, normal capillary refill Neurologic/Psychiatric: form builder II-XII nml as tested, no motor/sensory deficits, alert, normal mood/affect, oriented x 3 Skin: normal color, warm/dry; No rash Focused Exam Lactate Level 07/21/20 19:50: Lactic Acid Level 1.67 Lactic Acid Level Laboratory Tests Test 07/21/20 19:50 Lactic Acid Level 1.67 MMOL/L (0.50-2.00) Progress/Results/Core Measures Suspected Sepsis Recent Fever Within 48 Hours: Yes Infection Criteria Present: Suspected New Infection New/Unexplained Altered Menta: No Sepsis Screen: Possible Sepsis Risk SIRS Temperature: Pulse: 120 Respiratory Rate: 20 Laboratory Tests 07/21/20 19:50: White Blood Count 5.8 Blood Pressure 160 /99 Mean: 119 07/21/20 19:50: Lactic Acid Level 1.67 Laboratory Tests 07/21/20 19:50: Creatinine 0.89, INR Comment 0.9, Platelet Count 200, Total Bilirubin 0.2 Results/Orders Lab Results Laboratory Tests Test 07/21/20 19:43 07/21/20 19:45 07/21/20 19:50 07/21/20 21:50 Range/Units Coronavirus 2019 (SRINIVAS) Positive H Negative Urine Color YELLOW Urine Clarity CLEAR Urine pH 6.0 5-9 Urine Specific [place] <=1.005 1.016-1.022 Urine Protein NEGATIVE NEGATIVE Urine Glucose (UA) 3+ H NEGATIVE Urine Ketones 1+ H NEGATIVE Urine Nitrite NEGATIVE NEGATIVE Urine Bilirubin NEGATIVE NEGATIVE Urine Urobilinogen 0.2 < = 1.0 MG/DL Urine Leukocyte Esterase NEGATIVE NEGATIVE Urine RBC (Auto) NEGATIVE NEGATIVE Urine RBC NONE /HPF Urine WBC RARE /HPF Urine Squamous Epithelial Cells 2-5 /HPF Urine Crystals NONE /LPF Urine Bacteria TRACE /HPF Urine Casts NONE /LPF Urine Mucus NEGATIVE /LPF Urine Culture Indicated NO White Blood Count 5.8 4.3-11.0 10^3/uL Red Blood Count 4.99 3.80-5.11 10^6/uL Hemoglobin 13.0 11.5-16.0 g/dL Hematocrit 41 35-52 % Mean Corpuscular Volume 82 80-99 fL Mean Corpuscular Hemoglobin 26 25-34 pg Mean Corpuscular Hemoglobin Concent 32 32-36 g/dL Red Cell Distribution Width 13.4 10.0-14.5 % Platelet Count 200 130-400 10^3/uL Mean Platelet Volume 12.3 H 9.0-12.2 fL Immature Granulocyte % (Auto) 0 % Neutrophils (%) (Auto) 70 42-75 % Lymphocytes (%) (Auto) 23 12-44 % Monocytes (%) (Auto) 7 0-12 % Eosinophils (%) (Auto) 1 0-10 % Basophils (%) (Auto) 0 0-10 % Neutrophils # (Auto) 4.1 1.8-7.8 10^3/uL Lymphocytes # (Auto) 1.3 1.0-4.0 10^3/uL Monocytes # (Auto) 0.4 0.0-1.0 10^3/uL Eosinophils # (Auto) 0.0 0.0-0.3 10^3/uL Basophils # (Auto) 0.0 0.0-0.1 10^3/uL Immature Granulocyte # (Auto) 0.0 0.0-0.1 10^3/uL Erythrocyte Sedimentation Rate 19 0-20 MM/HR Prothrombin Time 12.9 12.2-14.7 SEC INR Comment 0.9 0.8-1.4 Activated Partial Thromboplast Time 28 24-35 SEC Sodium Level 131 L 135-145 MMOL/L Potassium Level 3.9 3.6-5.0 MMOL/L Chloride Level 96 L 98-107 MMOL/L Carbon Dioxide Level 21 21-32 MMOL/L Anion Gap 14 5-14 MMOL/L Blood Urea Nitrogen 6 L 7-18 MG/DL Creatinine 0.89 0.60-1.30 MG/DL Estimat Glomerular Filtration Rate > 60 BUN/Creatinine Ratio 7 Glucose Level 561 *H 70-105 MG/DL Lactic Acid Level 1.67 0.50-2.00 MMOL/L Calcium Level 9.2 8.5-10.1 MG/DL Corrected Calcium 9.3 8.5-10.1 MG/DL Total Bilirubin 0.2 0.1-1.0 MG/DL Aspartate Amino Transf (AST/SGOT) 35 H 5-34 U/L Alanine Aminotransferase (ALT/SGPT) 50 0-55 U/L Alkaline Phosphatase 75 40-136 U/L Lactate Dehydrogenase 186 125-220 U/L C-Reactive Protein High Sensitivity 5.48 H 0.00-0.50 MG/DL Total Protein 7.7 6.4-8.2 GM/DL Albumin 3.9 3.2-4.5 GM/DL Procalcitonin 0.03 <0.10 NG/ML Serum Test, Qualitative NEGATIVE NEGATIVE Glucometer 335 H 70-110 MG/DL Micro Results Microbiology 07/21/20 Influenza Types A,B Antigen (PRASHANTH) - Final, Complete My Orders Orders - RACHEL GUSMAN DO Cbc With Automated Diff (07/21/20 19:47) Comprehensive Metabolic Panel (07/21/20 19:47) Hs C Reactive Protein (07/21/20 19:47) Hcg,Qualitative Serum (07/21/20 19:47) Lactic Acid Analyzer (07/21/20 19:47) Protime With Inr (07/21/20 19:47) Partial Thromboplastin Time (07/21/20 19:47) Ua Culture If Indicated (07/21/20 19:47) Blood Culture (07/21/20 19:47) Influenza A And B Antigens (07/21/20 19:47) Erythrocyte Sedimentation Rate (07/21/20 19:47) Chest 1 View, Ap/Pa Only (07/21/20 19:47) Procalcitonin (Pct) (07/21/20 19:47) LDH (07/21/20 19:47) Covid 19 Inhouse Test (07/21/20 19:47) Ns Iv 1000 Ml (Sodium Chloride 0.9%) (07/21/20 20:14) Ibuprofen Tablet (Motrin Tablet) (07/21/20 20:14) Acetaminophen Tablet (Tylenol Tablet) (07/21/20 20:14) Insulin (Regular) Human (Novolin R (Per (07/21/20 20:45) Ed Iv/Invasive Line Start (07/21/20 20:42) Ns Iv 1000 Ml (Sodium Chloride 0.9%) (07/21/20 20:42) Accucheck Stat ONCE (07/21/20 20:59) Medications Given in ED Current Medications Medications Dose Ordered Sig/Juan Route Start Time Stop Time Status Last Admin Dose Admin Acetaminophen 500 mg STK-MED ONCE .ROUTE 07/21/20 20:14 07/21/20 20:17 DC 07/21/20 20:19 1,000 MG Ibuprofen 800 mg STK-MED ONCE PO 07/21/20 20:14 07/21/20 20:17 DC 07/21/20 20:20 800 MG Insulin Human Regular 20 unit ONCE ONCE IV 07/21/20 20:45 07/21/20 20:46 DC 07/21/20 21:07 20 UNIT Sodium Chloride 1,000 ml @ ud STK-MED ONCE .ROUTE 07/21/20 20:14 07/21/20 20:17 DC 07/21/20 20:20 1,000 MLS/HR Vital Signs/I&O 07/21/20 07/21/20 07/21/20 07/21/20 19:30 20:19 20:20 21:11 Temp 38.3 38.3 38.3 37.7 Pulse 120 Resp 20 B/P (MAP) 160/99 (119) Pulse Ox 98 07/21/20 22:00 Temp 37.4 Pulse 102 Resp 19 B/P (MAP) 124/84 (119) Pulse Ox 97 07/22/20 00:00 Intake Total 2000 ml Balance 2000 ml Capillary Refill : Less Than 3 Seconds Blood Pressure Mean: 119 Progress Note : Progress Note PLACED IN ISOLATION ROOM PPE WORN AT ALL TIMES COVID-19 TESTING PERFORMED PT ADVISED OF NEED FOR QUARANTINE FOR HERSELF AND ALL 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 BP STABLE AT 124/84. O2 SAT 97% ON ROOM AIR AT DISMISSAL GIVEN IV INSULIN REPEAT ACCUCHECK 335 NO COUGH OR DYSPNEA AT ANY TIME DURING ER STAY NO HYPOXIA Diagnostic Imaging Comments CXR--NO ACUTE PROCESS, PER RADIOLOGIST REPORT AT 2117 Reviewed: Reviewed by Me Departure Impression Primary Impression: COVID-19 virus infection Additional Impressions: Uncontrolled non-insulin dependent diabetes mellitus Hyponatremia Disposition: HOME, SELF-CARE Condition: Improved Departure-Patient Inst. Referrals: [facility] (PCP/Family) Primary Care Physician Patient Instructions: Blood Glucose Monitoring, Coronavirus Disease 2019 (COVID-19) (DC), Diabetes Type 2 (DC), Diabetes and Infections, Preventing the Spread of an Infectious Disease Add. Discharge Instructions: CHECK YOUR BLOOD SUGAR 4 TIMES A DAY--BEFORE EACH MEAL AND AT BEDTIME DO NOT MISS DOSES OF YOUR MEDICATIONS TYLENOL 1 GRAM/ MOTRIN 800 MG 4 TIMES A DAY FOR PAIN OR FEVER OVER THE COUNTER MEDICATIONS NEEDED FOR COUGH RETURN TO ER IF YOU ARE HAVING INCREASED SHORTNESS OF BREATH. FOLLOW UP WITH YOUR DR NEEDED All discharge instructions reviewed with patient and/or family. Voiced understanding. Work/School Note: Family Work Note, Patient Received Medical Care In the Emergency Department On: Jul 21, 2020 Patient Will Be Able to Return to Work/School On: Aug 05, 2020 Patient Restrictions: NEED RELEASE FROM DR Mtz OR HEALTH DEPARTMENT Work Release Form Date Seen in the Emergency Department: Jul 21, 2020 Return to Work: Aug 05, 2020 Restrictions: Need Release from RACHEL Noel DO Jul 21, 2020 20:27
[2020-07-21 20:29] LABS: ALBUMIN 3.9 GM/DL (3.2-4.5); CHLORIDE 96 MMOL/L (98-107); POTASSIUM 3.9 MMOL/L (3.6-5.0); SODIUM 131 MMOL/L (135-145)
[2020-07-21 20:31] LABS: CALCIUM 9.2 MG/DL (8.5-10.1)
[2020-07-21 20:32] LABS: TOTAL PROTEIN 7.7 GM/DL (6.4-8.2)
[2020-07-21 20:33] LABS: BILIRUBIN,TOTAL 0.2 MG/DL (0.1-1.0); CARBON DIOXIDE 21 MMOL/L (21-32)
[2020-07-21 20:35] LABS: ALKALINE PHOSPHATASE 75 U/L (40-136); CREATININE SERUM 0.89 MG/DL (0.60-1.30); GFR ESTIMATED > 60
[2020-07-21 20:36] LABS: BUN/CREATININE RATIO 7
[2020-07-21 20:37] LABS: ERYTHROCYTE SEDIMENTATION RATE 19 MM/HR (0-20)
[2020-07-21 20:38] LABS: ALANINE AMINOTRANSFERASE 50 U/L (0-55)
[2020-07-21 20:39] LABS: GLUCOSE 561 MG/DL (70-105)
[2020-07-21] MEDS ORDERED: NS IV 1000 ML 1,000 ML IV SCH (20:42)
[2020-07-21] MEDS ORDERED: inSUlin (REGULAR) HUMAN 1 UNIT/0.01 ML (CHARGE PER UNIT) IV ONE (20:45)
--- NOTE | 2020-07-21 21:14 | Diagnostic Imaging Report ---
INDICATION: Cough, fever. TECHNIQUE: Single view chest, 8:52 p.m. CORRELATION STUDY: 07/26/2017. FINDINGS: Suboptimal depth of inspiration. Given this, heart size and mediastinum appear stable. Lungs overall appear to be relatively stable and generally clear. IMPRESSION: Negative for acute abnormality of the chest. Dictated by: Dictated on workstation # [id number]
[2020-07-21 22:00] VITALS: BP 124/84
== END 2020-07-21 22:06 | disposition home or self-care (01) ==
LOC: EDUNIT# 19:17 → ER 19:21
DX: U07.1 COVID-19 (principal); E87.1 Hypo-osmolality and hyponatremia; E11.65 Type 2 diabetes mellitus with hyperglycemia; Z79.52 Long term (current) use of systemic steroids
CPT/HCPCS: 71045; 80053; 81000; 82962; 83605; 83615; 84145; 84703; 85025; 85610; 85652; 85730; 86141; 87040; 87804; 99284; U0002; 36415; 87635

== ENCOUNTER 2020-11-22 22:31 | Emergency (ER) | payer BC ==
[~2020-11-22] VITALS: Ht 162.5 cm; Wt 89.9 kg
[~2020-11-22 22:31] MED LIST changes: -LISI10TA2; +LISI10TA25
[2020-11-22] MEDS ORDERED: NS IV 1000 ML 1,000 ML IV SCH (22:45)
[2020-11-22 22:46] LABS: BASOPHILS % (AUTO) 1 % (0-10); EOSINOPHILS # (AUTO) 0.2 10^3/uL (0.0-0.3); EOSINOPHILS % (AUTO) 3 % (0-10); HEMATOCRIT 37 % (35-52); HEMOGLOBIN 12.2 g/dL (11.5-16.0); LYMPHOCYTES # (AUTO) 1.5 10^3/uL (1.0-4.0); LYMPHOCYTES % (AUTO) 20 % (12-44); MEAN CORPUSCULAR HEMOGLOBIN 27 pg (25-34); MEAN CORPUSCULAR HGB CONC 33 g/dL (32-36); MEAN CORPUSCULAR VOLUME 83 fL (80-99); MEAN PLATELET VOLUME 11.7 fL (9.0-12.2); MONOCYTES # (AUTO) 0.6 10^3/uL (0.0-1.0); MONOCYTES % (AUTO) 8 % (0-12); NEUTROPHILS # (AUTO) 5.2 10^3/uL (1.8-7.8); NEUTROPHILS % (AUTO) 69 % (42-75); PLATELET COUNT 236 10^3/uL (130-400); WHITE BLOOD COUNT 7.5 10^3/uL (4.3-11.0)
[2020-11-22 23:03] LABS: ALANINE AMINOTRANSFERASE 34 U/L (0-55); ALBUMIN 3.6 GM/DL (3.2-4.5); ALKALINE PHOSPHATASE 95 U/L (40-136); BILIRUBIN,TOTAL 0.2 MG/DL (0.1-1.0); BUN/CREATININE RATIO 8; CALCIUM 8.6 MG/DL (8.5-10.1); CARBON DIOXIDE 19 MMOL/L (21-32); CHLORIDE 102 MMOL/L (98-107); CREATININE SERUM 0.86 MG/DL (0.60-1.30); GFR ESTIMATED > 60; POTASSIUM 3.9 MMOL/L (3.6-5.0); SODIUM 133 MMOL/L (135-145)
[2020-11-22 23:11] LABS: GLUCOSE 562 MG/DL (70-105)
[2020-11-22 23:23] LABS: TSH (THYROID ANALYZER) 1.04 UIU/ML (0.35-4.94)
[2020-11-22 23:29] LABS: BILIRUBIN,URINE NEGATIVE (NEGATIVE); COLOR,URINE RED; GLUCOSE, URINE (UA) 3+ (NEGATIVE); KETONES,URINE TRACE (NEGATIVE); LEUKOCYTE ESTERASE ,URINE NEGATIVE (NEGATIVE); NITRITE,URINE POSITIVE (NEGATIVE); PROTEIN,URINE 2+ (NEGATIVE)
[2020-11-22 23:35] LABS: BACTERIA,URINE FEW /HPF; CLARITY,URINE CLOUDY; RBC,URINE TNTC /HPF; WBC,URINE RARE /HPF
[2020-11-23] MEDS ORDERED: NS IV 500 ML 500 ML IV ONE (00:15)
--- NOTE | 2020-11-23 00:53 | ED General ---
General Chief Complaint: Cardiac/General Problems Stated Complaint: HYPERTENSION,HIGH BLOOD SUGAR Nursing Triage Note: TO ED [facility]IA [facility] TO ROOM 7 WITH C/O HIGH BLOOD PRESSURE AND HIGH BLOOD SUGAR READING "HIGH" FOR EMS. 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 STATES SHE HAD FIRST COVID VACCINE YESTERDAY AND HAD COVID LAST JULY. Nursing Sepsis Screen: No Definite Risk Source of Information: Patient Exam Limitations: No Limitations History of Present Illness Date Seen by Provider: Nov 22, 2020 Time Seen by Provider: 22:32 Initial Comments This 35-year-old woman presents to the emergency room via EMS with complaints of high blood pressure and high blood sugar. She was in a verbal altercation with her daughter navjot when she started to feel her ears ringing in her fingers going numb. Blood sugar read "high" for EMS. Systolic blood sugar was over 200. Patient also reports she had her first COVID-19 vaccine yesterday. She reports compliance with her blood pressure medications today. Allergies and Home Medications Allergies Coded Allergies: No Known Drug Allergies (Unverified , 11/17/16) Home Medications Prednisone 20 Mg Tab, 20 MG PO DAILY Prescribed by: RAMA BURGESS on 12/06/162112 Patient Home Medication List Home Medication List Reviewed: Yes Review of Systems Review of Systems Constitutional: no symptoms reported EENTM: no symptoms reported Respiratory: no symptoms reported Cardiovascular: see HPI Gastrointestinal: no symptoms reported Genitourinary: no symptoms reported Musculoskeletal: no symptoms reported Skin: no symptoms reported Psychiatric/Neurological: See HPI Hematologic/Lymphatic: No Symptoms Reported Immunological/Allergic: no symptoms reported Past Tkkdmwj-Jwltpu-Tnsakj Hx Past Med/Social Hx: Reviewed Nursing Past Med/Soc Hx Patient Social History Alcohol Use: Denies Use Smoking Status: Never a Smoker Recent Infectious Disease Expo: No Recent Hopitalizations: No Seasonal Allergies Seasonal Allergies: No Past Medical History Surgeries: Yes Section Respiratory: No Cardiac: Yes Hypertension Neurological: No Last Menstrual Period: Nov 22, 2020 Reproductive Disorders: No Genitourinary: No Gastrointestinal: No Musculoskeletal: No Endocrine: Yes Diabetes, Non-Insulin dep HEENT: No Hearing Impairment: Denies Cancer: No Psychosocial: No Integumentary: No Blood Disorders: No Physical Exam Vital Signs Vital Signs - First Documented 11/22/20 22:34 Temp 36.5 Pulse 91 Resp 16 B/P (MAP) 202/125 (150) O2 Delivery Room Air Capillary Refill : Less Than 3 Seconds Height, Weight, BMI Height: 5'4.00" Weight: 210lbs. oz. 95.293783gi; 34.00 BMI Method:Stated General Appearance: No Apparent Distress, WD/WN HEENT: PERRL/EOMI, Normal ENT Inspection Neck: Normal Inspection Respiratory: Lungs Clear, Normal Breath Sounds, No Accessory Muscle Use Cardiovascular: Regular Rate, Rhythm, No Edema, No Murmur Gastrointestinal: Non Tender, Soft Extremity: Normal Inspection, No Pedal Edema Neurologic/Psychiatric: Alert, Oriented x3, No Motor/Sensory Deficits, Normal Mood/Affect, hand surgeon II-XII Norm as Tested Skin: Normal Color, Warm/Dry Progress/Results/Core Measures Suspected Sepsis Recent Fever Within 48 Hours: No Infection Criteria Present: None New/Unexplained Altered Menta: No Sepsis Screen: No Definite Risk SIRS Temperature: Pulse: 91 Respiratory Rate: 16 Laboratory Tests 11/22/20 22:35: White Blood Count 7.5 Blood Pressure 202 /125 Mean: 150 Laboratory Tests 11/22/20 22:35: Creatinine 0.86, Platelet Count 236, Total Bilirubin 0.2 Results/Orders Lab Results Laboratory Tests Test 11/22/20 22:35 11/22/20 23:19 11/22/20 23:59 11/23/20 00:58 Range/Units White Blood Count 7.5 4.3-11.0 10^3/uL Red Blood Count 4.49 3.80-5.11 10^6/uL Hemoglobin 12.2 11.5-16.0 g/dL Hematocrit 37 35-52 % Mean Corpuscular Volume 83 80-99 fL Mean Corpuscular Hemoglobin 27 25-34 pg Mean Corpuscular Hemoglobin Concent 33 32-36 g/dL Red Cell Distribution Width 12.9 10.0-14.5 % Platelet Count 236 130-400 10^3/uL Mean Platelet Volume 11.7 9.0-12.2 fL Immature Granulocyte % (Auto) 0 % Neutrophils (%) (Auto) 69 42-75 % Lymphocytes (%) (Auto) 20 12-44 % Monocytes (%) (Auto) 8 0-12 % Eosinophils (%) (Auto) 3 0-10 % Basophils (%) (Auto) 1 0-10 % Neutrophils # (Auto) 5.2 1.8-7.8 10^3/uL Lymphocytes # (Auto) 1.5 1.0-4.0 10^3/uL Monocytes # (Auto) 0.6 0.0-1.0 10^3/uL Eosinophils # (Auto) 0.2 0.0-0.3 10^3/uL Basophils # (Auto) 0.0 0.0-0.1 10^3/uL Immature Granulocyte # (Auto) 0.0 0.0-0.1 10^3/uL Sodium Level 133 L 135-145 MMOL/L Potassium Level 3.9 3.6-5.0 MMOL/L Chloride Level 102 98-107 MMOL/L Carbon Dioxide Level 19 L 21-32 MMOL/L Anion Gap 12 5-14 MMOL/L Blood Urea Nitrogen 7 7-18 MG/DL Creatinine 0.86 0.60-1.30 MG/DL Estimat Glomerular Filtration Rate > 60 BUN/Creatinine Ratio 8 Glucose Level 562 *H 70-105 MG/DL Calcium Level 8.6 8.5-10.1 MG/DL Corrected Calcium 8.9 8.5-10.1 MG/DL Total Bilirubin 0.2 0.1-1.0 MG/DL Aspartate Amino Transf (AST/SGOT) 18 5-34 U/L Alanine Aminotransferase (ALT/SGPT) 34 0-55 U/L Alkaline Phosphatase 95 40-136 U/L B-Type Natriuretic Peptide 16.1 <100.0 PG/ML Total Protein 7.0 6.4-8.2 GM/DL Albumin 3.6 3.2-4.5 GM/DL TSH [place] Testing 1.04 0.35-4.94 UIU/ML Urine Color RED H Urine Clarity CLOUDY Urine pH 5.0 5-9 Urine Specific [place] 1.010 L 1.016-1.022 Urine Protein 2+ H NEGATIVE Urine Glucose (UA) 3+ H NEGATIVE Urine Ketones TRACE H NEGATIVE Urine Nitrite POSITIVE H NEGATIVE Urine Bilirubin NEGATIVE NEGATIVE Urine Urobilinogen 1.0 < = 1.0 MG/DL Urine Leukocyte Esterase NEGATIVE NEGATIVE Urine RBC (Auto) 3+ H NEGATIVE Urine RBC TNTC H /HPF Urine WBC RARE /HPF Urine Crystals NONE /LPF Urine Bacteria FEW H /HPF Urine Casts NONE /LPF Urine Mucus NEGATIVE /LPF Urine Culture Indicated YES Glucometer 462 *H 377 H 70-110 MG/DL My Orders Orders - RAMA ESPINO MD Cbc With Automated Diff (11/22/20 22:41) Comprehensive Metabolic Panel (11/22/20 22:41) Thyroid Analyzer (11/22/20 22:41) Ua Culture If Indicated (11/22/20 22:41) Ed Iv/Invasive Line Start (11/22/20:41) Monitor-Rhythm Ecg Trace Only (11/22/20 22:41) Ns Iv 1000 Ml (Sodium Chloride 0.9%) (11/22/20 22:45) BNP (11/22/20 23:13) Accucheck Stat ONCE (11/22/20 23:13) Urine Culture (11/22/20 23:19) Ns Iv 500 Ml (Sodium Chloride 0.9%) (11/23/20 00:15) Accucheck Stat ONCE (11/23/20 00:01) Medications Given in ED Current Medications Medications Dose Ordered Sig/Juan Route Start Time Stop Time Status Last Admin Dose Admin Sodium Chloride 500 ml @ 0 mls/hr Q0M ONCE IV 11/23/20 00:15 11/23/20 00:16 DC 11/23/20 00:06 999 MLS/HR Vital Signs/I&O 11/22/20 22:34 Temp 36.5 Pulse 91 Resp 16 B/P (MAP) 202/125 (150) O2 Delivery Room Air 11/23/20 00:00 Intake Total 1000 ml Balance 1000 ml Capillary Refill : Less Than 3 Seconds Blood Pressure Mean: 150 Progress Note : Time: 00:54 Progress Note Initial blood pressure was significantly elevated. This has been trending down to more acceptable level. Paresthesias of the fingers have resolved. Initial blood sugar was 562. After liter of IV normal saline blood sugar was 462. Another normal saline bolus of 500 mL is infusing. We will check her blood sugar again after that is completed. Departure Impression Primary Impression: Hypertensive urgency Additional Impressions: Hyperglycemia Paresthesias Disposition: HOME, SELF-CARE Condition: Improved Departure-Patient Inst. Decision time for Depature: 01:00 [facility]: [facility] ([facility]Family) Primary Care Physician Patient Instructions: Hyperglycemia, Adult (DC), High Blood Pressure (DC) Add. Discharge Instructions: Follow-up with your primary care provider soon as possible. Continue taking your blood pressure and diabetic medication as previously prescribed. Eat a very low carbohydrate, low sugar diet. Check your blood sugars fasting in the morning and at least 1 time after meals each day. Bring your blood sugar trends to your follow-up appointment with your doctor. Call with questions or concerns. Return to the ER if you have worsening condition. All discharge instructions reviewed with patient and/or family. Voiced understanding. Copy Copies To 1: WANDA SPENCE JOSHUA T MD Nov 23, 2020 00:53
[2020-11-23 01:15] VITALS: BP 165/107
== END 2020-11-23 01:15 | disposition home or self-care (01) ==
LOC: EDUNIT# 22:31 → ER 22:32
DX: I16.0 Hypertensive urgency (principal); E11.65 Type 2 diabetes mellitus with hyperglycemia; Z79.52 Long term (current) use of systemic steroids; Z86.16 Personal history of COVID-19
CPT/HCPCS: 36415; 80053; 81000; 82962; 83880; 84443; 85025; 87088; 93041

== ENCOUNTER 2020-12-16 10:11 | Outpatient (RCR) | payer BC ==
[2020-12-16] MEDS ORDERED: IRON DEXTRAN 25 MG/NS 6.25 ML TOTAL VOLUME IV NR ×3 (10:30)
[2020-12-16] MEDS ORDERED: methylPREDNISolone 125 MG (Solu-MEDROL) VIAL IVP PRN (10:45)
[2020-12-16] MEDS ORDERED: ACETAMINOPHEN 325 MG TABLET PO PRN (10:45)
[2020-12-16] MEDS ORDERED: diphenhydrAMINE 50 MG/ML INJ (BENADRYL) IVP PRN (10:45)
[2020-12-16] MEDS ORDERED: IRON DEXTRAN 1,000 MG/NS 250 ML IVPB IV NR ×2 (11:00)
[2020-12-16 12:52] VITALS: BP 151/96
== END 2021-03-16 | disposition home or self-care (01) ==
LOC: SDC 10:11
PROVIDERS: ATTEND Family Medicine
DX: D50.9 Iron deficiency anemia, unspecified (principal)
CPT/HCPCS: 96365; 96374

== ENCOUNTER 2021-10-04 17:30 | Emergency (ER) | payer BC ==
[~2021-10-04] VITALS: Ht 162.6 cm; Wt 90.7 kg
--- NOTE | 2021-10-04 18:07 | ED EENT ---
History of Present Illness General Stated Complaint: SORE THOAT/EARACHE Source: patient Exam Limitations: no limitations History of Present Illness Date Seen by Provider: Oct 04, 2021 Time Seen by Provider: 18:03 Initial Comments Patient is a 36-year-old female presents ED with sore throat difficulty swallowing. Left-sided neck pain. Pain over the past week and a half. She states she was treated with amoxicillin by her primary care physician for strep throat. Her daughter had strep throat. She took the full dose amoxicillin but still having pain to the left throat. Tolerating secretions but does hurt to swallow. She noticed a lymph node to the left lower neck with pain. Rating pain into the ear. No dental tenderness or pain. Denies of any fever, cough, vomiting, diarrhea, body aches. Tested negative for Covid. Denies of any purulent drainage from underneath the floor the mouth. Tolerating secretions. Did lose her voice 4 days ago but that has improved. Allergies and Home Medications Allergies Coded Allergies: No Known Drug Allergies (Unverified , 11/17/16) Patient Home Medication List Home Medication List Reviewed: Yes Amoxicillin/Potassium Clav (Augmentin 875-125 Tablet) 1 Each Tablet, 1 EACH PO BID Prescribed by: JUAN CARLOS KAUR on 10/04/21 182 Lisinopril (Lisinopril) 10 Mg Tablet, (Reported) Entered as Reported by: DARCY DUNN on 12/03/16 1728 Metformin HCl (Metformin HCl ER) 500 Mg Tab.er.24h, (Reported) Entered as Reported by: DARCY DUNN on 12/03/16 1728 Prednisone (Prednisone) 20 Mg Tab, 20 MG PO DAILY Prescribed by: RAMA BURGESS on 12/06/162112 Review of Systems Review of Systems Constitutional: No chills, No diaphoresis, No dizziness, No fever, No malaise Eyes: Denies Blindness, Denies Blurred Vision Ears: Denies Dizziness, Denies Bloody Discharge, Denies Clear Discharge Nose: denies congestion, denies pain, denies purulent discharge Mouth: denies pain, denies swelling, denies purulent discharge Throat: pain; denies neck stiffness, denies hoarse; painful swallowing Respiratory: No cough, No dyspnea on exertion Cardiovascular: No chest pain, No edema Gastrointestinal: No abdominal pain, No diarrhea, No nausea, No vomiting Skin: No change in color, No change in hair/nails All Other Systems Reviewed Negative Unless Noted: Yes Past Rouebhl-Ptpdpo-Mnubhq Hx Seasonal Allergies Seasonal Allergies: No Past Medical History Surgeries: Yes Section Respiratory: No Cardiac: Yes Hypertension Neurological: No Reproductive Disorders: No Genitourinary: No Gastrointestinal: No Musculoskeletal: No Endocrine: Yes Diabetes, Non-Insulin dep HEENT: No Hearing Impairment: Denies Cancer: No Psychosocial: No Integumentary: No Blood Disorders: No Physical Exam Vital Signs Vital Signs - First Documented 10/04/21 17:53 Temp 36.8 Pulse 95 Resp 16 B/P (MAP) 157/106 (123) Pulse Ox 98 O2 Delivery Room Air Height, Weight, BMI Height: 5'4.00" Weight: 210lbs. oz. 95.254822ph; 34.00 BMI Method:Stated General Appearance: WD/WN, no apparent distress Eyes: bilateral eye normal inspection, bilateral eye PERRL, bilateral eye EOMI Ears: bilateral ear auricle normal, bilateral ear canal normal, bilateral ear TM normal Nose: normal inspection Mouth/Throat: normal mouth inspection, other (Left swollen palatine tonsil. No uvula deviation. 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 No muffling of the voice. No thyroid tenderness or swelling. Left submandibular lymphadenopathy, tenderness. Left TM with mild erythema. Strep a was negative. She has no other current complaints. She did lose her voice 4 days ago but that is improved. Pain with eating. Afebrile. No neck swelling, erythema. No purulent drainage from the floor the mouth. Discussed with patient concerning for pharyngitis versus submandibular sialoadenitis. She has no thyroid tenderness. Her vital signs are stable. Tolerating secretions without any uvula deviation unlikely abscess. Will treat with Augmentin. Anti-inflammatories for pain. If worsening pain may consider imaging rule out any other abnormality. Outpatient follow-up. Return precaution were discussed. Impression Primary Impression: Pharyngitis Disposition: 01 HOME, SELF-CARE Condition: Stable Departure-Patient Inst. Decision time for Depature: 18:28 Referrals: BYRON JULIAN MD (PCP/Family) Primary Care Physician Patient Instructions: Sore Throat, Adult (DC) Scripts Amoxicillin/Potassium Clav (Augmentin 875-125 Tablet) 1 Each Tablet 1 EACH PO BID for 10 Days, #20 TAB Prov: DILIA MARMOLEJO 10/04/21 DILIA MARMOLEJO Oct 04, 2021 18:06
[2021-10-04] MEDS ORDERED: AMOX-358 PO (18:29)
[2021-10-04 18:36] VITALS: BP 142/103
== END 2021-10-04 18:36 | disposition home or self-care (01) ==
LOC: EDUNIT# 17:30 → ER 17:32
DX: J02.9 Acute pharyngitis, unspecified (principal); I10 Essential (primary) hypertension; E11.9 Type 2 diabetes mellitus without complications; Z79.84 Long term (current) use of oral hypoglycemic drugs; Z79.899 Other long term (current) drug therapy
CPT/HCPCS: 87430; 99283

== ENCOUNTER 2021-10-08 17:05 | Emergency (ER) | payer BC ==
[~2021-10-08] VITALS: Ht 162 cm; Wt 89.0 kg
[~2021-10-08 17:05] MED LIST changes: +AMOX-358 PO
[2021-10-08 17:07] VITALS: BP 126/88
[2021-10-08] MEDS ORDERED: LIDOCAINE 1% INJ 20 ML VIAL INJ ONE (17:15)
[2021-10-08] MEDS ORDERED: TETANUS,DIPTH,PERTUSS P/F (BOOSTRIX) 0.5 ML VIAL IM ONE (17:15)
--- NOTE | 2021-10-08 17:17 | ED Upper Extremity ---
General Chief Complaint: Laceration Stated Complaint: LEFT MIDDLE FINGER LAC Source: patient History of Present Illness Date Seen by Provider: Oct 08, 2021 Time Seen by Provider: 17:15 Initial Comments Patient is a 36-year-old female presents ED with a laceration to her left palmar index finger. This occurred 30 minutes ago. She states she was cleaning her knife at home when it slipped resulting in a laceration to the left palmar middle finger. Bleeding controlled direct pressure. Normal active range of motion. Not up-to-date on her tetanus within the past 5 years. Denies any distal numbness tingling. No obvious bone deformity. Denies taking thing for pain. Allergies and Home Medications Allergies Coded Allergies: No Known Drug Allergies (Unverified , 11/17/16) Patient Home Medication List Home Medication List Reviewed: Yes Amoxicillin/Potassium Clav (Augmentin 875-125 Tablet) 1 Each Tablet, 1 EACH PO BID Prescribed by: JUAN CARLOS KAUR on 10/04/21 1829 Lisinopril (Lisinopril) 10 Mg Tablet, (Reported) Entered as Reported by: DARCY DUNN on 12/03/16 1728 Metformin HCl (Metformin HCl ER) 500 Mg Tab.er.24h, (Reported) Entered as Reported by: DARCY DUNN on 12/03/16 1728 Prednisone (Prednisone) 20 Mg Tab, 20 MG PO DAILY Prescribed by: RAMA BURGESS on 12/06/162112 Review of Systems Constitutional: No chills, No diaphoresis, No dizziness, No fever EENTM: No double vision, No eye pain, No mouth pain, No throat pain, No throat swelling Respiratory: No cough, No orthopnea, No short of breath Cardiovascular: No chest pain, No edema Gastrointestinal: No abdominal pain, No diarrhea, No vomiting Musculoskeletal: No back pain, No joint pain; muscle pain Skin: other (Laceration) Past Eusyogt-Fxaiwo-Gfkjav Hx Immunizations Up To Date First/Initial COVID19 Vaccinat: 2020 Second COVID19 Vaccination Horacio: 2020 Seasonal Allergies Seasonal Allergies: No Past Medical History Surgeries: Yes Section Respiratory: No Cardiac: Yes Hypertension Neurological: No Reproductive Disorders: No Genitourinary: No Gastrointestinal: No Musculoskeletal: No Endocrine: Yes Diabetes, Non-Insulin dep HEENT: No Hearing Impairment: Denies Cancer: No Psychosocial: No Integumentary: No Blood Disorders: No Physical Exam Vital Signs Vital Signs - First Documented 10/08/21 17:07 Temp 36.4 Pulse 87 Resp 16 B/P (MAP) 126/88 (101) Pulse Ox 97 O2 Delivery Room Air Capillary Refill : Height, Weight, BMI Height: 5'4.00" Weight: 210lbs. oz. 95.484928fc; 34.00 BMI Method:Stated General Appearance: WD/WN, no apparent distress HEENT: PERRL/EOMI, normal ENT inspection, TMs normal, pharynx normal Neck: non-tender, full range of motion, supple Cardiovascular: regular rate, rhythm, no edema, no gallop, no JVD, no murmur Respiratory: chest non-tender, lungs clear, normal breath sounds, no respiratory distress, no accessory muscle use Gastrointestinal: normal bowel sounds, non tender, soft, no organomegaly Back: normal inspection, no CVA tenderness, no vertebral tenderness Wrist: Yes non-tender, Yes no evidence of injury, Yes normal ROM Hand: laceration (1 cm laceration to left middle finger palmar side. Normal active range of motion. Neurovascular intact.) Procedures/Interventions Wound Location: Upper Extremities Other Wound Location left middle finger Wound's Depth, Shape: superficial, flap, sub Q Wound Explored: clean Irrigated w/ Saline (ccs): 100 Betadine Prep?: Yes Anesthesia: 1% Lidocaine Volume Anesthetic (ccs): 5 Suture: Ethlion Suture Size: 5-0 Number of Sutures: 7 Layer Closure?: 1 Sterile Dressing Applied?: Yes Patient consented with procedure. digital block left middle finger. Neurovascular intact. Patient tired procedure well. Leo tape with single finger splint. Remove in 10 days Progress/Results/Core Measures Results/Orders My Orders Orders - DILIA MARMOLEJO Lidocaine 1% Inj 20 Ml (Xylocaine 1% Inj (10/08/21 17:15) Dipht,Pertuss(Acell),Tet Adult (Boostrix (10/08/21 17:15) Vital Signs/I&O 10/08/21 17:07 Temp 36.4 Pulse 87 Resp 16 B/P (MAP) 126/88 (101) Pulse Ox 97 O2 Delivery Room Air Departure Communication (Admissions) Patient with a laceration to her left middle finger on the palmar side. 7 Ethilon sutures were placed to remove in 10 days. Was given a tetanus shot. Neurovascular intact. No tendon involvement. Recommend Neosporin at home twice a day. Discussed wound care. Return precaution were discussed with patient. Impression Primary Impression: Finger laceration Disposition: HOME, SELF-CARE Condition: Stable Departure-Patient Inst. Decision time for Depature: 17:42 Referrals: BYRON JULIAN MD (PCP/Family) Primary Care Physician Patient Instructions: Laceration Repair With Stitches ED Add. Discharge Instructions: Remove sutures in 10 days All discharge instructions reviewed with patient and/or family. Voiced understanding. DILIA MARMOLEJO Oct 08, 2021 17:17
== END 2021-10-08 17:55 | disposition home or self-care (01) ==
LOC: EDUNIT# 17:05 → ER 17:08
DX: S61.213A Laceration without foreign body of left middle finger without damage to nail, initial encounter (principal); I10 Essential (primary) hypertension; E11.9 Type 2 diabetes mellitus without complications; Z23 Encounter for immunization; Z79.84 Long term (current) use of oral hypoglycemic drugs; Z79.899 Other long term (current) drug therapy; W26.0XXA Contact with knife, initial encounter
CPT/HCPCS: 12011; 64450; 90715

== ENCOUNTER 2022-04-22 12:39 | Outpatient (RCR) | payer BC ==
[2022-04-15] MEDS: FERRIC CARBOXYMALTOSE INJ 750 MG in NS (IVPB) 250 ML IV SCH (13:07)
[2022-04-15 13:09] VITALS: BP 122/80
[~2022-04-22] VITALS: Wt 89.0 kg
[2022-04-22 12:40] VITALS: BP 128/78
[2022-04-22] MEDS: FERRIC CARBOXYMALTOSE INJ 750 MG in NS (IVPB) 250 ML IV SCH (13:00)
== END 2022-04-22 13:24 | disposition home or self-care (01) ==
LOC: SDC 12:39
PROVIDERS: ATTEND Nurse Practitioner Family
DX: D50.9 Iron deficiency anemia, unspecified (principal)
CPT/HCPCS: 96365